=== PATIENT | female | born 1950 | race Caucasian/White ===

== ENCOUNTER 2022-02-26 13:19 | Emergency (ER) | payer MEDICARE ==
[2022-02-26] MEDS ORDERED: LISINOPRIL40 MG PO (13:42)
[2022-02-26] MEDS ORDERED: LASIX20 MG PO (13:44)
[2022-02-26] MEDS ORDERED: LOPRESSOR50 MG PO (13:44)
[2022-02-26] MEDS ORDERED: BUPROPION HCL150 M1 PO (13:44)
[2022-02-26] MEDS ORDERED: WARFARIN SODIUM5 MG PO (13:45)
[2022-02-26] MEDS ORDERED: DULOXETINE HCL60 MG PO (13:45)
[2022-02-26] MEDS ORDERED: ROSUVASTATIN CA20 MG PO (13:45)
[2022-02-26 14:25] LABS: BASOPHIL 0.6 % (0-2); HCT 34.5 % (37.0-47.0); LYMPHOCYTE 6.8 % (15-48); MCH 27.9 pg (25.0-31.0); MCHC 31.9 g/dL (32.0-36.0); MCV 87.6 fL (78.0-100.0); MONOCYTE 7.3 % (0-12); NEUTROPHIL 83.6 % (41-80); NRBC 0; PLT 226 K/uL (150-400); RBC 3.94 M/uL (4.20-5.40); RDW 14.5 % (11.5-14.0); WBC 10.8 K/uL (4.0-10.5)
[2022-02-26 14:36] LABS: INR 3.7 (0.9-1.2); PROTHROMBIN TIME 35.6 SECONDS (11.8-13.4)
== END 2022-02-26 15:58 | disposition home or self-care (01) ==
LOC: FER 13:19
PROVIDERS: Emergency Medicine; Physician Assistant
DX: I10 Essential (primary) hypertension (principal); R04.0 Epistaxis; R79.1 Abnormal coagulation profile; I48.91 Unspecified atrial fibrillation; Z88.5 Allergy status to narcotic agent; Z88.6 Allergy status to analgesic agent; Z79.01 Long term (current) use of anticoagulants; Z87.891 Personal history of nicotine dependence
CPT/HCPCS: 36415; 85025; 85610; 99283

== ENCOUNTER 2022-03-26 08:38 | Emergency (ER) | payer MEDICARE ==
[~2022-03-26 08:38] MED LIST: BUPROPION HCL150 M1 PO; DULOXETINE HCL60 MG PO; LASIX20 MG PO; LISINOPRIL40 MG PO; LOPRESSOR50 MG PO; ROSUVASTATIN CA20 MG PO; WARFARIN SODIUM5 MG PO
[2022-03-26 09:34] LABS: BASOPHIL 0.8 % (0-2); HCT 37.7 % (37.0-47.0); HGB 12.1 g/dl (12.5-16.0); LYMPHOCYTE 18.3 % (15-48); MCH 28.3 pg (25.0-31.0); MCHC 32.1 g/dL (32.0-36.0); MCV 88.3 fL (78.0-100.0); MONOCYTE 9.2 % (0-12); MPV 10.4 fL (6.0-9.5); NRBC 0; PLT 317 K/uL (150-400); RBC 4.27 M/uL (4.20-5.40); RDW 14.6 % (11.5-14.0); WBC 8.8 K/uL (4.0-10.5)
[2022-03-26 10:49] LABS: BILIRUBIN NEGATIVE (NEGATIVE); BLOOD TRACE-INTACT Ery/uL (NEGATIVE); CLARITY CLEAR (CLEAR); COLOR YELLOW (YELLOW); GLUCOSE (U) NORMAL (NORMAL); LEUKOCYTES 1+ Leu/uL (NEGATIVE); NITRITE NEGATIVE (NEGATIVE); PROTEIN NEGATIVE (NEGATIVE); SPECIFIC GRAVITY 1.015 (1.001-1.030); UROBILINOGEN 0.2 mg/dL (0.2-1.0)
[2022-03-26 11:00] LABS: BACTERIA 2+; URINARY RBC RARE; URINARY WBC 20-50
[2022-03-26 11:31] LABS: INR 2.74 (0.9-1.2)
[2022-03-26 11:48] LABS: ALBUMIN 3.5 g/dL (3.4-5.0); BILIRUBIN - TOTAL 0.4 mg/dL (0.2-1.0); BUN/CREAT RATIO (CALC) 18.2 RATIO; CREATININE 0.66 mg/dL (0.51-0.95); GLOBULIN (CALCULATION) 3.2 g/dL; POTASSIUM 4.4 mmol/L (3.5-5.1); TOTAL PROTEIN 6.7 g/dL (6.4-8.2)
[2022-03-26 12:24] LABS: LACTIC ACID 1.7 mmol/L (0.4-1.9)
[2022-03-26] MEDS ORDERED: NORCO 5-325 TA1 EACH PO (15:09)
== END 2022-03-26 15:43 | disposition home or self-care (01) ==
LOC: FER 08:38
PROVIDERS: Emergency Medicine
DX: S20.212A Contusion of left front wall of thorax, initial encounter (principal); D35.02 Benign neoplasm of left adrenal gland; N32.89 Other specified disorders of bladder; I50.9 Heart failure, unspecified; J45.909 Unspecified asthma, uncomplicated; Z88.5 Allergy status to narcotic agent; Z88.6 Allergy status to analgesic agent; W19.XXXA Unspecified fall, initial encounter; Y92.002 Bathroom of unspecified non-institutional (private) residence as the place of occurrence of the external cause
CPT/HCPCS: 36415; 72128; 72131; 80053; 81001; 82728; 83605; 83690; 83735; 84145; 84484; 85025; 85610; 93005; J0696; J1170; J2405; Q9967